=== PATIENT | male | born 1990 | race African-American/Black ===

== ENCOUNTER 2021-05-26 07:01 | Emergency (ER) | payer BC, OTHER ==
[~2021-05-26] VITALS: Ht 175.3 cm; Wt 138.8 kg
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
[2021-05-26 07:48] VITALS: BP 151/99
== END 2021-05-26 07:48 | disposition home or self-care (01) ==
LOC: ER 07:01
DX: S93.401A Sprain of unspecified ligament of right ankle, initial encounter (principal); S00.83XA Contusion of other part of head, initial encounter; Z88.5 Allergy status to narcotic agent; V59.49XA Driver of pick-up truck or van injured in collision with other motor vehicles in traffic accident, initial encounter; Y93.89 Activity, other specified; Y92.89 Other specified places as the place of occurrence of the external cause; Y99.8 Other external cause status